=== PATIENT | male | born 1990 | race Caucasian/White ===

== ENCOUNTER 2019-07-17 06:47 | Emergency (ER) | payer OTHER ==
[2019-07-17 06:58] VITALS: TEMP 98; BMI 24.3
--- NOTE | 2019-07-17 07:41 | PDOC ---
History of Present Illness - General Chief Complaint: Pain, Acute Stated Complaint: ABD PAIN Time Seen by Provider: 07/17/19 07:24 - History of Present Illness Initial Comments: 07/17/19 07:57 Mr. France is a 28 yo male w/ pmh of Bipolar Disorder, Schizophrenia, and Anxiety who presents for evaluation of 1 day history of diffuse abdominal pain with nausea, vomiting, and diarrhea. Patient also reports he feels lightheaded at this time. Patient reports symptoms started last night at 1830. Patient reports he had a similar episode last week for which he was evaluated by his PCP (including abdominal US) w/ no acute findings. The patient denies chest pain, shortness of breath, headache and dizziness. Denies fever, chills, and constipation. Denies dysuria, frequency, urgency and hematuria. Past History - Past Medical History Allergies/Adverse Reactions: Allergies Allergy/AdvReac Type Severity Reaction Status Date / Time fluphenazine [From Prolixin] Allergy Verified 07/17/19 06:54 haloperidol [From Haldol] Allergy Verified 07/17/19 06:54 Home Medications: Ambulatory Orders Ondansetron [Zofran *Odt*] 4 mg SL TID PRN #9 od.tablet 07/17/19 COPD: No Psychiatric Problems: Yes (SCHIZO, Bipolar, Multiple personalities) - Psycho Social/Smoking Cessation Hx Smoking History: Never smoked Review of Systems - Review of Systems Comments:: 07/17/19 08:01 GENERAL/CONSTITUTIONAL: No fever or chills. No weakness. HEAD, EYES, EARS, NOSE AND THROAT: No change in vision. No ear pain or discharge. No sore throat. CARDIOVASCULAR: No chest pain or shortness of breath RESPIRATORY: No cough, wheezing, or hemoptysis. GASTROINTESTINAL: No nausea, vomiting, diarrhea or constipation. GENITOURINARY: No dysuria, frequency, or change in urination. MUSCULOSKELETAL: No joint or muscle swelling or pain. No neck or back pain. SKIN: No rash NEUROLOGIC: No headache, vertigo, loss of consciousness, or change in strength/ sensation. ENDOCRINE: No increased thirst. No abnormal weight change HEMATOLOGIC/LYMPHATIC: No anemia, easy bleeding, or history of blood clots. ALLERGIC/IMMUNOLOGIC: No hives or skin allergy. *Physical Exam - Vital Signs Last Vital Signs Temp Pulse Resp BP Pulse Ox 98.0 F 67 18 124/59 L 98 07/17/19 06:55 07/17/19 06:55 07/17/19 06:55 07/17/19 06:55 07/17/19 06:55 - Physical Exam 07/17/19 08:02 GENERAL: Awake, alert, and fully oriented, in no acute distress HEAD: No signs of trauma, normocephalic, atraumatic EYES: PERRLA, EOMI, sclera anicteric, conjunctiva clear ENT: Auricles normal inspection, hearing grossly normal, nares patent, oropharynx clear without exudates. Moist mucosa NECK: Normal ROM, supple, no lymphadenopathy, JVD, or masses LUNGS: No distress, speaks full sentences, clear to auscultation bilaterally HEART: Regular rate and rhythm, normal S1 and S2, no murmurs, rubs or gallops, peripheral pulses normal and equal bilaterally. ABDOMEN: Soft, nontender, normoactive bowel sounds. No guarding, no rebound. No masses EXTREMITIES: Normal inspection, Normal range of motion, no edema. No clubbing or cyanosis. NEUROLOGICAL: Cranial nerves II through XII grossly intact. Normal speech, normal gait, no focal sensorimotor deficits SKIN: Warm, Dry, normal turgor, no rashes or lesions noted. ED Treatment Course - LABORATORY CBC & Chemistry Diagram: 07/17/19 07:47 07/17/19 07:47 Medical Decision Making - Medical Decision Making 07/17/19 08:02 Mr. France is a 28 yo male w/ pmh as described who presents for evaluation of non-specific symptoms of n/v/d w/ abdominal pain. Patient further endorses having a lot of phlegm in this time period as well. Symptoms c/w viral illness; no concerning findings at this time. Given patient's extensive psych meds EKG obtained which revealed QTc of 405. Patient given reglan/benadryl/fluids and basic labs pending at this time for r/o acute process. 07/17/19 09:36 Patient reporting improvement of symptoms however reports he is not fully improved. Labs grossly wnl as below. No concern for acute process at this time and patient advised to stay home and take symptomatic OTC medications as well as proscribed zofran prn for nausea. Discharging to home. Discharge - Discharge Information Problems reviewed: Yes Clinical Impression/Diagnosis: Viral illness Disposition: HOME - Follow up/Referral - Patient Discharge Instructions Patient Printed Discharge Instructions: DI for Viral Upper Respiratory Infection -- Adult Additional Instructions: You were evaluated today in the ER for your symptoms. We performed laboratory anaylsis and did not find any emergent findings at this time. Please follow-up later this week with primary care physician as discussed. We also sent a prescription to your pharmacy for anti-nausea medication. Take all medications as proscribed. You may take over the counter motrin or tylenol per package instructions as needed for pain. Return to ER if any fever, chills, inability to tolerate food, or other concerning symptoms. - Post Discharge Activity
[2019-07-17] MEDS ORDERED: METOCLOPRAMIDE HCL INJECTION 10 MG/2 ML VIAL IVPB ONE (07:52)
[2019-07-17] MEDS ORDERED: SODIUM CHLORIDE 1,000 ML IV STA (07:52)
[2019-07-17 08:06] LABS: BASO % 0.2 % (0-2.0); EOS % 0.1 % (0-4.5); HEMATOCRIT 46.6 % (35.4-49); HEMOGLOBIN 15.8 GM/dL (11.7-16.9); LYMPH % 7.7 % (8-40); MCH 30.4 pg (25.7-33.7); MCHC 33.9 g/dl (32.0-35.9); MEAN CELL VOLUME 89.8 fl (80-96); MEAN PLT VOLUME 9.2 fl (7.5-11.1); MONO % 11.7 % (3.8-10.2); NEUT % 80.3 % (42.8-82.8); PLATELET COUNT 221 K/MM3 (134-434); RBC 5.19 M/mm3 (4.00-5.60); RDW 13.9 % (11.9-15.9); WHITE BLOOD COUNT 9.8 K/mm3 (4.0-10.0)
[2019-07-17] MEDS ORDERED: METOCLOPRAMIDE HCL INJECTION 10 MG/2 ML VIAL ONE (08:11)
[2019-07-17 08:28] LABS: ALBUMIN 4.2 g/dl (3.4-5.0); BILIRUBIN,TOTAL 0.4 mg/dL (0.2-1); BLOOD UREA NITROGEN 11.6 mg/dL (7-18); CALCIUM 9.1 mg/dL (8.5-10.1); CREATININE 0.8 mg/dL (0.55-1.3); POTASSIUM 3.7 mmol/L (3.5-5.1); TOT PROT 7.2 g/dl (6.4-8.2)
--- NOTE | 2019-07-17 09:35 | PDOC ---
Attending Attestation - Resident Resident Name: Reza Alvarez - ED Attending Attestation I have performed the following: I have examined & evaluated the patient, The case was reviewed & discussed with the resident, I agree w/resident's findings & plan, Exceptions are as noted - HPI HPI: 07/17/19 09:35 28 years old multiple psychiatric issues presents to the ED with 3-week history of nausea vomiting diarrhea has not vomited in several days was diagnosed with flu approximately 1 week ago states he still has intermittent diarrhea but has not had any in the last 2 days His PCP has requested a stool sample from him which she has been unable to provide he denies suicidal ideation homicidal ideation denies auditory visual hallucinations Symptoms are mild to moderate persistent constant no exacerbating alleviating factors no travel no recent antibiotics - Physicial Exam PE: 07/17/19 09:36 Vitals: Triage Vital signs reviewed General Appearance: No acute distress, well nourished well developed, Cardiac: Regular rate and rhythym, no murmurs, no rubs, no gallops, Lungs: Clear to auscultation bilateral, good air movement bilaterally, Abdomen: Soft, non distended, normal bowel sounds, non tender to palpation Extremities: Full range of motion to all extremities, no cyanosis, clubbing, or edema Skin: Warm and dry, no rashes or lesions, no rash, no petechia Psych: Normal mood, normal affect - Medical Decision Making 07/17/19 14:15 Well-appearing no apparent distress history and examination consistent with diarrheal illness although no diarrhea in the last 24 hours Labs within normal normal limits no red flags in patient's history will have patient follow-up with PCP this week will discharge with Zofran Findings, the need for follow-up and strict return instructions discussed with patient.
[2019-07-17 10:07] VITALS: BP 107/55; PULSE 68
--- NOTE | 2019-07-17 13:49 | EKG ---
Test Reason : Blood Pressure : / mmHG Vent. Rate : 055 BPM Atrial Rate : 055 BPM P-R Int : 134 ms QRS Dur : 090 ms QT Int : 424 ms P-R-T Axes : 071 072 058 degrees QTc Int : 405 ms SINUS BRADYCARDIA WITH SINUS ARRHYTHMIA OTHERWISE NORMAL ECG WHEN COMPARED WITH ECG OF 10-JUN-2010 14:53, NO SIGNIFICANT CHANGE WAS FOUND Confirmed by Lety Thornton ([id number]) on 07/17/2019 1:49:19 PM Referred By: Confirmed By:Lety Thornton
== END 2019-07-17 09:45 | disposition home or self-care (01) ==
LOC: JER 06:47
PROC: 3E033GC Introduction of Other Therapeutic Substance into Peripheral Vein, Percutaneous Approach (ICD-10-PCS; principal; 2019-07-17)
PROC: 3E033GC Introduction of Other Therapeutic Substance into Peripheral Vein, Percutaneous Approach (ICD-10-PCS; 2019-07-17)
DX: B34.9 Viral infection, unspecified (principal); F31.9 Bipolar disorder, unspecified; F20.9 Schizophrenia, unspecified; F41.9 Anxiety disorder, unspecified; Z88.8 Allergy status to other drugs, medicaments and biological substances
CPT/HCPCS: 36415; 80053; 85025; 93005; 93010; 96374; 96375; 99283-25; J7030

== ENCOUNTER 2019-07-18 12:39 | Emergency (ER) | payer OTHER ==
[2019-07-18 13:21] VITALS: BMI 26.4
--- NOTE | 2019-07-18 14:46 | PDOC ---
History of Present Illness - General Chief Complaint: Pain Stated Complaint: ABD PAIN Time Seen by Provider: 07/18/19 14:28 History Source: Patient Exam Limitations: No Limitations - History of Present Illness Initial Comments: Angus France is a 28 yo M w a hx of bipolar and schizophrenia, anxiety, who presents to the [facility] er with abdominal pain which began yesterday. It started suddenly, awoke him from sleep, and he couldn't return to sleep afterwards. He describes the pain as 100/10, sharp in nature, located primarily in the bilateral flank region and Lower quadrants more than the upper quadrants. Patient was here yesterday and CA'ed with a presumed diarrheal illness. He had the flu one week ago. States he cannot remember when his last bowel movement was. He states he has been vomitting more times than he can count in the past few days but he still has an appetite. He endorses subjective fevers and chills but did not measure his temp at home. He denies any sick contacts or recent travel. Patient also endorses RUQ abdominal pain, worsened after he eats foods. He also endorses dysuria, urgency, and frequency. patient states his right testicle has been hurting for a few vaughn. He also endorses right flank pain. Denies recent sexual activity, denies having sex with men, denies hx of STD's PCP: Doesn't know her name. Says it starts with a K Social Hx: Smokes 2 cigs/day for past ten years. Denies alcohol or illicit drug usage Psych meds: zoloft, cogentin, gabapentin PSH: None reported Allergies: fluphenzaine, haloperidol Past History - Past Medical History Allergies/Adverse Reactions: Allergies Allergy/AdvReac Type Severity Reaction Status Date / Time fluphenazine [From Prolixin] Allergy Verified 07/18/19 12:43 haloperidol [From Haldol] Allergy Verified 07/18/19 12:43 Home Medications: Ambulatory Orders Ondansetron [Zofran *Odt*] 4 mg SL TID PRN #9 od.tablet 07/17/19 COPD: No Psychiatric Problems: Yes (SCHIZO, Bipolar, Multiple personalities) Other medical history: DEPRESSION - Immunization History Immunization Up to Date: No - Psycho Social/Smoking Cessation Hx Smoking History: Unknown if ever smoked Hx Alcohol Use: No Drug/Substance Use Hx: No Review of Systems - Review of Systems Able to Perform ROS?: Yes Comments:: CONSTITUTIONAL: Absent: fever, no chills, no fatigue EYES: Absent: visual changes ENT: Absent: ear pain, no sore throat CARDIOVASCULAR: Absent: chest pain, no palpitations RESPIRATORY: Absent: cough, no SOB GI: Present: Abdominal pain, nausea, vomiting, diarrhea Absent: no constipation GENITOURINARY: Present: dysuria, urgency, frequency Absent: no hematuria MUSKULOSKELETAL: Present: Myalgia Absent:no arthralgia SKIN: Absent: rash NEURO: Absent: headache *Physical Exam - Vital Signs Last Vital Signs Temp Pulse Resp BP Pulse Ox 97.8 F 56 L 18 93/70 99 07/18/19 13:00 07/18/19 13:00 07/18/19 13:00 07/18/19 13:00 07/18/19 13:00 - Physical Exam GENERAL: Well-appearing, well-nourished. No apparent distress. HEENT: Normocephalic, atraumatic. PERRL, EOM intact. CARDIOVASCULAR: Normal S1, S2. Regular rate and rhythm. PULMONARY: No evidence of respiratory distress. Lungs clear to auscultation bilaterally. No wheezing, rales or rhonchi. ABDOMEN: Soft, non-distended, non-tender. Nomral bowel sounds. No guarding no rebound. No tenderness to deep palpation. GENITOURINARY: There is mild right testicular tenderness which is relieved with gentle elevation. Normal cremasteric b/l. EXTREMITIES: Normal ROM in all four extremities. No gross deformities. SKIN: Warm, dry. No rash NEUROLOGICAL: No focal neurological deficits. ED Treatment Course - LABORATORY CBC & Chemistry Diagram: 07/18/19 15:43 07/18/19 15:43 - RADIOLOGY Radiograph Interpretation: Testicular US: EXAM#: TYPE/EXAM: RESULT: [id number] US/ SCROTUM AND CONTENTS US Scrotal ultrasound Clinical information: evaluate for torsion, epididymitis The exam was performed utilizing grayscale and Doppler sonography. The testes appear unremarkable in overall size, contour and echogenicity. No focal testicular pathology is noted. There is no Doppler evidence of testicular torsion, reported sensitivity 85%. Correlate clinically. No hydrocele is seen. There is no obvious varicocele with the patient in a recumbent position. A 0.9 cm right epididymal head cyst is seen as well as two 0.2 cm left epididymal head cysts. The epididymal structures otherwise appear unremarkable. Impression: as noted above. RUQ US: EXAM#: TYPE/EXAM: RESULT: [id number] US/ ABDOMEN US -LIMITED Right upper quadrant abdomen ultrasound Clinical information : evaluate for cholecystitis No biliary calculus is seen. The gallbladder demonstrates no discrete abnormality. No pericholecystic fluid is identified. The common bile duct diameter appears unremarkable measuring 0.5 cm. The pancreas is partially obscured due to overlapping bowel gas. No obvious pathology is seen. No free intraperitoneal fluid is noted. There is no right hydronephrosis. The right kidney demonstrates no definite sonographic abnormality. Impression: No sonographic evidence of cholelithiasis or acute cholecystitis. There is no definite biliary tract dilatation. Medical Decision Making - Medical Decision Making 28 yo M w multiple psych comorbidiites presents with a myriad of complaints including nausea, vomiting, diarrhea, abdominal pain, testicular pain, myalgias , and overall malaise Vital Signs Temp Pulse Resp BP Pulse Ox 97.8 F 56 L 18 93/70 99 07/18/19 13:00 07/18/19 13:00 07/18/19 13:00 07/18/19 13:07/18/19 13:00 DDx IBNLT: gastroenteritis, electrolyte/metabolic disturbance, STD, UTI/pylo, testicular torsion vs epidydymo-orchitis, cholelithiasis, cholecystitis, gastritis, PUD/GERD, influenza, strep Plan: Labs, Urine, STD testing, EKG, Testicular and RUQ US, analgesia, IV hydration, supportive care, re-assess Flu: Positive Strep: Negative Labs: Mildly hypok - repleting orally GC/CT: Call back placed in [employer] to call and inform patient of results. Urine: 1+ ketonuria - Hydrating patient and giving him food. - He is eating and drinking at bedside and says he believes zofran fixed him. EKG: NS rate of 54, narrow complexes, normal axis, no hypertrophy, no ST elevations or depressions, no abnormal TWI's, QTc 400, MT 136 Testicular US: No focal testicular pathology is noted. There is no Doppler evidence of testicular torsion, reported sensitivity 85%. A 0.9 cm right epididymal head cyst is seen as well as two 0.2 cm left epididymal head cysts. RUQ US: No obvious pathology is seen. No free intraperitoneal fluid is noted. There is no right hydronephrosis. The right kidney demonstrates no definite sonographic abnormality. Impression: No sonographic evidence of cholelithiasis or acute cholecystitis. There is no definite biliary tract dilatation Re-assessment: Patient very relieved to have a reason as to why he feels so ill and why everything is happening to him Disposition: Home with PCP fu Discharge - Discharge Information Problems reviewed: Yes Clinical Impression/Diagnosis: Influenza Condition: Improved Disposition: HOME - Admission No - Follow up/Referral Referrals: [facility] [Provider Group] - Patient Discharge Instructions Patient Printed Discharge Instructions: Influenza Additional Instructions: You came into the ER with fevers, chills, abdominal pain, nausea, vomiting and diarrhea. You have the flu. Please read attached handout for further instructions. You must make sure to stay well hydrated, eat and drink. Please call up the resident clinic we are referring you to and schedule a follow up appointment in the next 3 to 5 days to make sure you are feeling well and being taken care of. Come back to the ER immediately with any new or worsening concerns. Thank you for coming to the [facility] ER. We hope you feel better soon! Print Language: URDU - Post Discharge Activity Work/Back to School Note: Back to Work
[2019-07-18] MEDS ORDERED: SODIUM CHLORIDE 1,000 ML IV STA (14:54)
[2019-07-18] MEDS ORDERED: FAMOTIDINE 20 MG/50 ML IVPB 20 MG/50 ML MG IVPB ONE ×2 (14:54→15:22)
[2019-07-18] MEDS ORDERED: ACETAMINOPHEN 1000 MG/100 ML VIAL (NON FORMULARY) IVPB ONE (14:54)
[2019-07-18] MEDS ORDERED: ONDANSETRON 4 MG/2 ML VIAL IVPUSH ONE (14:56)
[2019-07-18] MEDS ORDERED: MAG HYDROX/AL HYDROX/SIMETH 30 ML UNIT-DOSE CUP PO ONE (15:20)
[2019-07-18] MEDS ORDERED: ACETAMINOPHEN INJECTION 100 ML IVPB ONE (15:21)
[2019-07-18] MEDS ORDERED: ONDANSETRON 4 MG/2 ML VIAL ONE (15:22)
[2019-07-18 16:40] LABS: BASO % 0.8 % (0-2.0); HEMOGLOBIN 14.6 GM/dL (11.7-16.9); LYMPH % 11.9 % (8-40); MCH 30.1 pg (25.7-33.7); MCHC 33.1 g/dl (32.0-35.9); MEAN CELL VOLUME 91.1 fl (80-96); MEAN PLT VOLUME 10.2 fl (7.5-11.1); MONO % 9.5 % (3.8-10.2); NEUT % 77.8 % (42.8-82.8); PLATELET COUNT 178 K/MM3 (134-434); RBC 4.84 M/mm3 (4.00-5.60)
[2019-07-18 17:06] LABS: ALBUMIN 3.9 g/dl (3.4-5.0); BILIRUBIN,TOTAL 0.3 mg/dL (0.2-1); BLOOD UREA NITROGEN 6.1 mg/dL (7-18); CALCIUM 8.6 mg/dL (8.5-10.1); CREATININE 0.7 mg/dL (0.55-1.3); MAGNESIUM 2.1 mg/dL (1.8-2.4); PHOSPHOROUS 2.4 mg/dL (2.5-4.9); POTASSIUM 3.4 mmol/L (3.5-5.1); TOT PROT 6.5 g/dl (6.4-8.2)
[2019-07-18 18:07] LABS: PH,URINE 6.5 (5.0-8.0); URINE APPEARANCE CLEAR; URINE BILIRUBIN NEGATIVE (NEGATIVE); URINE COLOR YELLOW; URINE GLUCOSE (UA) NEGATIVE (NEGATIVE); URINE KETONE 1+ (NEGATIVE); URINE LEUK ESTERASE NEGATIVE (NEGATIVE); URINE NITRITE NEGATIVE (NEGATIVE); URINE PROTEIN NEGATIVE (NEGATIVE)
[2019-07-18] MEDS ORDERED: MAG HYDROX/AL HYDROX/SIMETH 30 ML UNIT-DOSE CUP ONE (18:24)
[2019-07-18 19:14] VITALS: BP 117/55; PULSE 64; TEMP 99.1
[2019-07-18] MEDS ORDERED: POTASSIUM CHLORIDE ORAL LIQUID 20 MEQ/15 ML PO SCH (22:00)
--- NOTE | 2019-07-19 15:35 | EKG ---
Test Reason : Blood Pressure : / mmHG Vent. Rate : 054 BPM Atrial Rate : 054 BPM P-R Int : 136 ms QRS Dur : 088 ms QT Int : 422 ms P-R-T Axes : 051 059 043 degrees QTc Int : 400 ms SINUS BRADYCARDIA WITH MARKED SINUS ARRHYTHMIA OTHERWISE NORMAL ECG nonspecific t wave abnormalities Confirmed by MD Harsh, Haseeb ([id number]) on 07/19/2019 3:35:00 PM Referred By: Confirmed By:Haseeb House MD
--- NOTE | 2019-07-26 18:44 | PDOC ---
Documentation entered by Maxx Talavera SCRIBE, acting as scribe for Nitin Sanchez MD. Nitin Sanchez MD: This documentation has been prepared by the Ilan chandler Daniel, SCRIBE, under my direction and personally reviewed by me in its entirety. I confirm that the documentation accurately reflects all work, treatment, procedures, and medical decision making performed by me. Attending Attestation - Resident Resident Name: Pop Aranda - ED Attending Attestation I have performed the following: I have examined & evaluated the patient, The case was reviewed & discussed with the resident, I agree w/resident's findings & plan, Exceptions are as noted - HPI HPI: 07/18/19 15:24 The patient is a 28 year old female with a past medical history of bipolar disorder, schizophrenia, anxiety, and depression here today for evaluation of abdominal pain. The patient reports that his abdominal pain began yesterday and describes it as upper and lower with associated bilateral flank, burning with urination, subjective fever, chills, vomiting, and right testicular pain. The patient initially presented to [facility] but left with his IV in place and called an ambulance to come here. Patient denies headache, lightheadedness. Denies chest pain, shortness of breath. Denies nausea, diarrhea. Allergies: fluphenazine, haloperidol - Physicial Exam PE: 07/18/19 15:24 Agree with resident exam - Medical Decision Making 28yo M presents to the ED with multiple complaints - found to be Flu B+ Non tender abd exam, scrotal exam with mild R testicalar ttp. Neg prehns, normal Labs and abd/scrotal US with no acute findings Pt feeling a lot better with fluids, tolerating PO after zofran He is well appearing and clinically stable for DC home with PMD f/u I discussed the physical exam findings, ancillary test results and final diagnoses with the patient. I answered all of the patient's questions. The patient was satisfied with the care received and felt comfortable with the discharge plan and treatment plan. The patient will call their primary care physician within 24 hours to arrange follow-up and will return to the Emergency Department with any new, persistent or worsening symptoms.
== END 2019-07-18 19:14 | disposition home or self-care (01) ==
LOC: JER 12:39
PROC: 3E033GC Introduction of Other Therapeutic Substance into Peripheral Vein, Percutaneous Approach (ICD-10-PCS; principal; 2019-07-18)
PROC: 3E033NZ Introduction of Analgesics, Hypnotics, Sedatives into Peripheral Vein, Percutaneous Approach (ICD-10-PCS; 2019-07-18)
PROC: 3E033GC Introduction of Other Therapeutic Substance into Peripheral Vein, Percutaneous Approach (ICD-10-PCS; 2019-07-18)
DX: J10.1 Influenza due to other identified influenza virus with other respiratory manifestations (principal); N50.3 Cyst of epididymis; F31.9 Bipolar disorder, unspecified; F20.9 Schizophrenia, unspecified; F41.8 Other specified anxiety disorders; Z88.8 Allergy status to other drugs, medicaments and biological substances; F17.210 Nicotine dependence, cigarettes, uncomplicated
CPT/HCPCS: 36415; 76705-TC; 76870-TC; 80053; 81003; 83605; 83690; 83735; 84100; 85025; 87070; 87086; 87491; 87591; 87804; 87880; 93005; 93010; 96365; 96375; 99283-25; J0131; J7030

== ENCOUNTER 2019-07-26 06:45 | Emergency (ER) | payer OTHER ==
[2019-07-26 07:06] VITALS: BP 110/75; PULSE 67; TEMP 98.2; BMI 27.2
[2019-07-26 08:54] LABS: BASO % 0.6 % (0-2.0); EOS % 1.5 % (0-4.5); HEMATOCRIT 44.9 % (35.4-49); LYMPH % 26.6 % (8-40); MCH 30.2 pg (25.7-33.7); MCHC 33.5 g/dl (32.0-35.9); MEAN CELL VOLUME 90.1 fl (80-96); MEAN PLT VOLUME 8.8 fl (7.5-11.1); MONO % 7.5 % (3.8-10.2); NEUT % 63.8 % (42.8-82.8); PLATELET COUNT 253 K/MM3 (134-434); RBC 4.98 M/mm3 (4.00-5.60); RDW 13.9 % (11.9-15.9); WHITE BLOOD COUNT 13.5 K/mm3 (4.0-10.0)
--- NOTE | 2019-07-26 09:17 | PDOC ---
Documentation entered by Arely Phan SCRIBE, acting as scribe for Enrique Vasquez MD. Enrique Vasquez MD: This documentation has been prepared by the Sylvester chandler Adrianna, SCRIBE, under my direction and personally reviewed by me in its entirety. I confirm that the documentation accurately reflects all work, treatment, procedures, and medical decision making performed by me. History of Present Illness - General Chief Complaint: Rectal Bleed Stated Complaint: RECTAL BLEEDING,ABD PAIN Time Seen by Provider: 07/26/19 07:33 - History of Present Illness Initial Comments: The patient is a 28 year old male, with a significant PMH of bipolar disorder, schizophrenia, anxiety, and depression, who presents to the ED for evaluation of rectal bleeding and abdominal pain for 2 days. Patient notes that his rectum feels dry, rough and cracked. He notes he has been experiencing dark red rectal bleeding, that sometimes drips and other times is present when he passes stool. He endorses associated diffuse lower abdominal cramping, and notes he had multiple episodes of nausea and vomit this morning. He was seen in the ED one week ago for abdominal pain with nausea and vomit, and was discharged as a viral illness. Allergies:fluphenazine, haloperidol Surgical History: None reported Social History: Current everyday smoker (2 cigs per day for the past ten years) . Currently in rehab for substance abuse. Past History - Past Medical History Allergies/Adverse Reactions: Allergies Allergy/AdvReac Type Severity Reaction Status Date / Time fluphenazine [From Prolixin] Allergy Verified 07/18/19 12:43 haloperidol [From Haldol] Allergy Verified 07/18/19 12:43 Home Medications: Ambulatory Orders Ondansetron [Zofran *Odt*] 4 mg SL TID PRN #9 od.tablet 07/17/19 Acetaminophen [Tylenol] 325 mg PO PRN 15 Days #15 capsule 07/18/19 Docusate Sodium [Colace -] 100 mg PO BID #30 capsule 07/26/19 Hydrocortisone Acetate [Anusol Hc Suppository -] 25 mg RC DAILY #14 supp.rect COPD: No Psychiatric Problems: Yes (SCHIZO, Bipolar, Multiple personalities) - Immunization History Immunization Up to Date: No - Psycho Social/Smoking Cessation Hx Smoking History: Never smoked Hx Alcohol Use: No Drug/Substance Use Hx: No Review of Systems - Review of Systems Comments:: CONSTITUTIONAL: No fever, no chills, no fatigue EYES: No visual changes ENT: No ear pain, no sore throat CARDIOVASCULAR: No chest pain, no palpitations RESPIRATORY: No cough, no SOB GI: +Diffuse lower abdominal cramping. +Nausea. +Multiple episodes of vomit. GENITOURINARY: No dysuria, no frequency, no hematuria RECTAL: +Dark red blood both with passing stool & dripping. +Dry, rough, and cracked rectum. MUSKULOSKELETAL: No back pain, no joint pain, no myalgias SKIN: No rash NEURO: No headache *Physical Exam - Vital Signs Last Vital Signs Temp Pulse Resp BP Pulse Ox 98.2 F 67 19 110/75 97 07/26/19 06:45 07/26/19 06:45 07/26/19 06:45 07/26/19 06:45 07/26/19 06:45 - Physical Exam ADULT EXAMINATION CONSTITUTIONAL: Well-appearing; well-nourished; in no apparent distress HEAD: Normocephalic; atraumatic EYES: PERRL; EOM intact ENMT: External appears normal; normal oropharynx NECK: Supple; non-tender; no cervical lymphadenopathy CARD: Normal S1, S2; no murmurs, rubs, or gallops RESP: Normal chest excursion with respiration; breath sounds clear and equal bilaterally; no wheezes, rhonchi, or rales ABD: Soft, non-distended; non-tender; no palpable organomegaly, no palpable hernias RECTAL: +Palpable fissure at the 12:00 position. EXT: Normal ROM in all four extremities; non-tender to palpation; distal pulses intact SKIN: Warm, dry, no rash NEURO: No focal neurological deficiencies. ED Treatment Course - LABORATORY CBC & Chemistry Diagram: 07/26/19 08:10 07/26/19 08:10 - ADDITIONAL ORDERS Additional order review: Laboratory Results 07/26/19 08:10 Stool Occult Blood Negative 07/26/19 08:10 RBC 4.98 MCV 90.1 MCHC 33.5 RDW 13.9 MPV 8.8 D Neutrophils % 63.8 Lymphocytes % 26.6 D Monocytes % 7.5 Eosinophils % 1.5 D Basophils % 0.6 Medical Decision Making - Medical Decision Making 07/26/19 09:15 Patient is a 28-year-old male with history of schizophrenia, polysubstance abuse , recently diagnosed with influenza presents to the ER with suprapubic abdominal cramping, tenesmus, painful defecation and rectal bleeding associated with several days of constipation. Patient also endorses nausea and several episodes of nonbloody, nonbilious vomiting. In the ER, patient is awake and alert, well-appearing, afebrile, in no distress. Serial abdominal exams reveal no focal tenderness. Bowel sounds are present in all 4 quadrants. Rectal exam reveals indurated perianal mucosa and a possible fissure at 6:00. No active bleeding is noted. No internal or external hemorrhoids were palpated initially. I suspect proctitis. Appendicitis or colitis highly unlikely. Will discharge with Anusol suppositories, stool softeners and PMD follow-up. 07/26/19 09:31 Patient reassessed. Patient tolerating p.o., complaining of mild right paraspinal lower back pain which was reproducible to palpation without focal neuro deficits. Will treat with acetaminophen. Will discharge. Discharge - Discharge Information Problems reviewed: Yes Clinical Impression/Diagnosis: Rectal bleeding, Anal fissure Condition: Stable - Follow up/Referral Referrals: Jeremie Piper DO [Staff Physician] - - Patient Discharge Instructions Patient Printed Discharge Instructions: DI for Rectal Bleeding, DI for Anal Fissure - Post Discharge Activity Work/Back to School Note: Back to Work
[2019-07-26] MEDS ORDERED: ACETAMINOPHEN 500 MG TABLET (FP) PO ONE (09:37)
[2019-07-26 09:44] LABS: ALBUMIN 3.8 g/dl (3.4-5.0); BILIRUBIN,TOTAL 0.4 mg/dL (0.2-1); BLOOD UREA NITROGEN 12.3 mg/dL (7-18); CALCIUM 8.8 mg/dL (8.5-10.1); CREATININE 0.7 mg/dL (0.55-1.3); POTASSIUM 4.1 mmol/L (3.5-5.1); TOT PROT 6.8 g/dl (6.4-8.2)
[2019-07-26] MEDS ORDERED: ACETAMINOPHEN 500 MG TABLET (FP) ONE (09:47)
== END 2019-07-26 10:00 | disposition home or self-care (01) ==
LOC: JER 06:45
DX: K60.2 Anal fissure, unspecified (principal); K62.5 Hemorrhage of anus and rectum; Z88.8 Allergy status to other drugs, medicaments and biological substances; F20.9 Schizophrenia, unspecified; F19.10 Other psychoactive substance abuse, uncomplicated
CPT/HCPCS: 36415; 80053; 82272; 85025; 99282-25